=== PATIENT | male | born 1975 | race Hispanic/Latino ===

== ENCOUNTER 2022-07-14 08:35 | Outpatient (CLI) | payer BC | END 2022-07-14 08:36 | disposition home or self-care (01) | LOC: BICRAD 08:35 | PROVIDERS: ATTEND Internal Medicine Rheumatology | DX: M54.50 Low back pain, unspecified (principal); M47.816 Spondylosis without myelopathy or radiculopathy, lumbar region | CPT/HCPCS: 72110 ==

== ENCOUNTER 2022-12-28 06:26 | Day surgery (SDC) | payer BC ==
[2022-12-27 11:59] VITALS: BMI 51.9
[2022-12-28] MEDS ORDERED: PROPOFOL 200 MG/20 ML VIAL ONE (08:18)
[2022-12-28] MEDS ORDERED: Lidocaine 1% PF 5 ML VIAL ONE (08:18)
== END 2022-12-28 09:35 | disposition home or self-care (01) ==
LOC: SDC 06:26
PROVIDERS: ATTEND Internal Medicine Gastroenterology
PROC: 0DBL8ZZ Excision of Transverse Colon, Via Natural or Artificial Opening Endoscopic (ICD-10-PCS; principal; 2022-12-28)
PROC: 0DBN8ZZ Excision of Sigmoid Colon, Via Natural or Artificial Opening Endoscopic (ICD-10-PCS; principal; 2022-12-28)
DX: Z12.11 Encounter for screening for malignant neoplasm of colon (principal); D12.3 Benign neoplasm of transverse colon; D12.5 Benign neoplasm of sigmoid colon; I10 Essential (primary) hypertension; E66.9 Obesity, unspecified; Z68.43 Body mass index [BMI] 50.0-59.9, adult; Z91.040 Latex allergy status; Z79.899 Other long term (current) drug therapy
CPT/HCPCS: 88305; J2704

== ENCOUNTER 2023-05-02 13:00 | Outpatient (CLI) | payer BC ==
[2023-05-02 15:01] LABS: Hematocrit 46.3 % (38.8-50.0); Mean Corpuscular HGB CONC 34.6 g/dL (32.0-36.0); Mean Corpuscular Hemoglobin 32.1 pg (27.0-33.0); Mean Corpuscular Volume 92.8 fl (81.2-95.1); Mean Platelet Volume 11.2 fl (7.4-10.4); Platelet Count 244 10x3/uL (150-450); RBC Distribution Width 12.8 % (11.5-14.5); Red Blood Cell (RBC) Count 4.99 10x6/uL (4.32-5.72); White Blood Cell (WBC) Count 7.1 10x3/uL (3.5-10.5)
[2023-05-02 15:05] LABS: Bilirubin Neg (Negative); Blood, Urine Negative (Negative); Clarity Clear (Clear); Glucose, Urine (Dipstick) Normal (Negative); Ketone, Urine Negative (Negative); Leukocyte 25 (Negative); Nitrite Negative (Negative); Protein, Urine (Dipstick) Negative (Neg-Trace); Urobilinogen Normal mg/dL (Less than 2)
[2023-05-02 15:19] LABS: RBC/HPF 0-3 HPF (0-3)
[2023-05-02 15:21] LABS: Bacteria/HPF Rare-Few HPF (None Seen)
[2023-05-02 15:35] LABS: Prothrombin Time 10.6 sec (9.5-12.1)
[2023-05-02 15:50] LABS: Anion Gap 15 mmol/L (10-20); BUN (Urea Nitrogen) 17 mg/dL (8.9-20.6); Calc. Creatinine Clearance 0 mL/min (70-130); Carbon Dioxide 25 mmol/L (22-29); Chloride 103 mmol/L (98-107); Estimated GFR 112; Glucose 120 mg/dL (70-105); Potassium 3.9 mmol/L (3.5-5.1); Sodium 139 mmol/L (136-145)
== END 2023-05-02 13:01 | disposition home or self-care (01) ==
LOC: LABBT 13:00
PROVIDERS: ATTEND Urology
DX: Z01.818 Encounter for other preprocedural examination (principal); N47.1 Phimosis; L40.9 Psoriasis, unspecified; N48.1 Balanitis; E66.01 Morbid (severe) obesity due to excess calories; Z68.43 Body mass index [BMI] 50.0-59.9, adult
CPT/HCPCS: 71046; 80048; 81001; 85027; 85610; 85730; 87086; 93005; 93010

== ENCOUNTER 2023-05-12 05:35 | Day surgery (SDC) | payer BC ==
[2023-05-02 13:36] VITALS: BMI 56.1
[2023-05-12] MEDS ORDERED: Bacitracin Zinc Ointment 30 gm TUBE ONE (07:01)
[2023-05-12] MEDS ORDERED: Bupivacaine 0.25% HCL 30 ML VIAL ONE (07:01)
[2023-05-12] MEDS ORDERED: Midazolam HCl 2 mg/2 ml Vial ONE (07:02)
[2023-05-12] MEDS ORDERED: fentaNYL PF 100 MCG/2 ML SYRINGE ONE (07:02)
[2023-05-12] MEDS ORDERED: SUGAMMADEX SODIUM 200 MG/2 ML VIAL ONE (07:08)
[2023-05-12] MEDS ORDERED: CEFAZOLIN 2 GM VIAL ONE (07:32)
[2023-05-12] MEDS ORDERED: Sodium Chloride 0.9% 100 ML ONE (07:33)
[2023-05-12] MEDS ORDERED: Succinylcholine 200 MG/10 ml SYRINGE FS ONE (07:49)
[2023-05-12] MEDS ORDERED: Lidocaine 1% PF 5 ML VIAL ONE (07:49)
[2023-05-12] MEDS ORDERED: PHENYLEPHRINE-NS 100 MCG/ML 10 ML SYRINGE ONE (07:49)
[2023-05-12] MEDS ORDERED: PROPOFOL 200 MG/20 ML VIAL ONE (07:49)
== END 2023-05-12 11:00 | disposition home or self-care (01) ==
LOC: SDC 05:35
PROVIDERS: ATTEND Urology
PROC: 0VTTXZZ Resection of Prepuce, External Approach (ICD-10-PCS; principal; 2023-05-12)
DX: N47.1 Phimosis (principal); N48.89 Other specified disorders of penis; I10 Essential (primary) hypertension; E66.01 Morbid (severe) obesity due to excess calories; Z68.43 Body mass index [BMI] 50.0-59.9, adult; Z91.040 Latex allergy status
CPT/HCPCS: 88304; J2250; J2704; J3490; S0020